=== PATIENT | female | born 1985 | race Caucasian/White ===

== ENCOUNTER 2018-07-23 11:51 | Outpatient (CLI) | payer MEDICAID ==
[2018-07-23 12:15] LABS: ADD MAN DIFF? NO
[2018-07-23 12:18] LABS: BASOPHIL # 0.1 10^3/ul (0.0-0.1); BASOPHILS % 0.8 % (0.0-2.0); EOSINOPHILS # 0.2 10^3/ul (0.0-0.5); EOSINOPHILS % 2.3 % (0.0-7.0); HEMATOCRIT 35.4 % (37.0-47.0); HEMOGLOBIN 11.3 g/dl (12.0-16.0); LYMPHOCYTES # 1.3 10^3/ul (0.8-2.9); LYMPHOCYTES % 17.2 % (15.0-51.0); MEAN CORPUSCULAR HEMOGLOBIN 24.7 pg (29.0-33.0); MEAN CORPUSCULAR HGB CONC 31.9 g/dl (32.0-37.0); MEAN CORPUSCULAR VOLUME 77.5 fl (82.0-101.0); MEAN PLATELET VOLUME 10.7 fl (7.4-10.4); MONOCYTE # 0.4 10^3/ul (0.3-0.9); MONOCYTES % 5.4 % (0.0-11.0); NEUTROPHIL # 5.4 10^3/ul (1.6-7.5); NEUTROPHILS % 73.8 % (39.0-77.0); PLATELET COUNT 351 10^3/UL (140-415); RED BLOOD COUNT 4.57 10^6/ul (4.20-5.40); RED CELL DISTRIBUTION WIDTH 14.9 % (11.5-14.5)
[2018-07-23 12:18] LABS: WHITE BLOOD COUNT 7.3 10^3/ul (4.8-10.8)
[2018-07-23 12:35] LABS: ALANINE AMINOTRANSFERASE 18 IU/L (13-69); ALBUMIN 3.6 g/dl (3.3-4.9); ALBUMIN/GLOBULIN RATIO 0.94; ALKALINE PHOSPHATASE 323 IU/L (42-121); ANION GAP 9 (5-13); ASPARTATE AMINO TRANSFERASE 27 IU/L (15-46); BILIRUBIN,INDIRECT 0.3 mg/dl (0-1.1); BILIRUBIN,TOTAL 0.3 mg/dl (0.2-1.3); BLOOD UREA NITROGEN 6 mg/dl (7-20); CALCIUM 8.9 mg/dl (8.4-10.2); CARBON DIOXIDE 19 mmol/L (21-31); CHLORIDE 110 mmol/L (97-110); CREATININE 0.63 mg/dl (0.44-1.00); Estimated GFR > 60 mL/min (>60); GLUCOSE 77 mg/dl (70-220); POTASSIUM 4.5 mmol/L (3.5-5.1); SODIUM 138 mmol/L (135-144); TOTAL PROTEIN 7.4 g/dl (6.1-8.1); URIC ACID 5.5 mg/dl (3.1-7.9)
[2018-07-23 12:41] LABS: INR 0.83; PROTIME 11.5 Sec (11.9-14.9); PT RATIO 0.9
[2018-07-23 12:42] LABS: PARTIAL THROMBOPLASTIN TIME 27.3 Sec (23.0-35.0)
[2018-07-23 12:52] LABS: ADD UMIC YES; UR AMORPHOUS CRYSTAL FEW /HPF (NONE SEEN); UR ASCORBIC ACID NEGATIVE (NEGATIVE); UR BACTERIA FEW /HPF (NONE SEEN); UR BILIRUBIN (Dip) NEGATIVE (NEGATIVE); UR BLOOD (Dip) 1+ mg/dL (NEGATIVE); UR CLARITY CLOUDY (CLEAR); UR COLOR YELLOW (YELLOW); UR GLUCOSE (Dip) NEGATIVE (NEGATIVE); UR KETONES (Dip) NEGATIVE (NEGATIVE); UR LEUKOCYTE ESTERASE (Dip) 3+ Leu/ul (NEGATIVE); UR NITRITE (Dip) NEGATIVE (NEGATIVE); UR RBC 12 /HPF (0-5); UR SPECIFIC GRAVITY (Dip) 1.008 (1.003-1.030); UR SQUAMOUS EPITHELIAL CELL FEW /HPF (FEW); UR TOTAL PROTEIN (Dip) NEGATIVE (NEGATIVE); UR UROBILINOGEN (Dip) NEGATIVE (NEGATIVE); UR WBC 37 /HPF (0-5)
[2018-07-23] MEDS: CEFTRIAXONE 2 GM INJ IM (16:08)
== END 2018-07-23 16:25 | disposition home or self-care (01) ==
LOC: OBT 11:51 → L-D 11:51 → OBT 16:25
DX: O13.3 Gestational [pregnancy-induced] hypertension without significant proteinuria, third trimester (principal); Z3A.38 38 weeks gestation of pregnancy
CPT/HCPCS: 76818; 80053; 81001; 84560; 85025; 85384; 85610; 85730; 96372

== ENCOUNTER 2018-07-27 11:23 | Inpatient (IN) | payer MEDICAID ==
[2018-07-27] MEDS ORDERED: OXYTOCIN 30 UNITS/LR 500 ML IV ×2 (12:30)
[2018-07-27] MEDS ORDERED: CARBOPROST 250 MCG INJ IM (12:30)
[2018-07-27] MEDS: LACTATED RINGER'S 1,000 ML IV ×2 (12:33→20:43)
[2018-07-27 12:53] LABS: ADD MAN DIFF? NO
[2018-07-27 12:56] LABS: BASOPHIL # 0.1 10^3/ul (0.0-0.1); BASOPHILS % 0.7 % (0.0-2.0); EOSINOPHILS % 0.4 % (0.0-7.0); HEMATOCRIT 35.2 % (37.0-47.0); LYMPHOCYTES # 1.2 10^3/ul (0.8-2.9); LYMPHOCYTES % 14.5 % (15.0-51.0); MEAN CORPUSCULAR HEMOGLOBIN 24.6 pg (29.0-33.0); MEAN CORPUSCULAR HGB CONC 31.3 g/dl (32.0-37.0); MEAN CORPUSCULAR VOLUME 78.6 fl (82.0-101.0); MONOCYTE # 0.3 10^3/ul (0.3-0.9); MONOCYTES % 3.8 % (0.0-11.0); NEUTROPHIL # 6.6 10^3/ul (1.6-7.5); NEUTROPHILS % 79.8 % (39.0-77.0); PLATELET COUNT 340 10^3/UL (140-415); RED BLOOD COUNT 4.48 10^6/ul (4.20-5.40); RED CELL DISTRIBUTION WIDTH 15.3 % (11.5-14.5)
[2018-07-27 12:56] LABS: WHITE BLOOD COUNT 8.3 10^3/ul (4.8-10.8)
[2018-07-27 13:16] LABS: PARTIAL THROMBOPLASTIN TIME 26.4 Sec (23.0-35.0)
[2018-07-27 13:22] LABS: PROTIME 12.3 Sec (11.9-14.9)
[2018-07-27 15:03] LABS: RAPID PLASMA REAGIN NONREACTIVE (NR)
[2018-07-27] MEDS: OXYTOCIN 30 UNITS/LR 500 ML IV (18:20)
[2018-07-28] MEDS: LACTATED RINGER'S 1,000 ML IV ×3 (00:29→09:42)
[2018-07-28] MEDS ORDERED: FENTAnyl 2MCG/ML-ROPIV 0.2% 100 ML (00:59)
[2018-07-28] MEDS ORDERED: ROPIVACAINE 0.2% 100 ML (01:00)
[2018-07-28] MEDS ORDERED: ONDANSETRON 4 MG INJ IV ×2 (01:00→22:00)
[2018-07-28] MEDS ORDERED: KETOROLAC 30 MG INJ IV (01:00)
[2018-07-28] MEDS ORDERED: NALOXONE (0.4 MG/ML) INJ IV (01:00)
[2018-07-28] MEDS ORDERED: DIPHENHYDRAMINE 50 MG INJ IV (01:00)
[2018-07-28] MEDS ORDERED: HYDROmorphONE 0.5 MG/0.5 ML SYG IV ×2 (01:00)
[2018-07-28] MEDS: FENTAnyl 2MCG/ML-ROPIV 0.2% 100 ML BAG EPI ×2 (11:10→20:03)
[2018-07-28] MEDS ORDERED: SODIUM CHLORIDE 0.9% 1L IRRIG IRR (12:30)
[2018-07-28] MEDS: DEXTROSE 5%-LR 1,000 ML IV (12:52)
[2018-07-28] MEDS: SOD CHLORIDE 0.9% 1,000 ML IV (15:42)
[2018-07-28] MEDS ORDERED: AMPICILLIN 2 GM/NS (PMX) 100 ML (20:16)
[2018-07-28] MEDS: AMPICILLIN 2 GM/NS (PMX) 100 ML IVPB (20:19)
[2018-07-28] MEDS: ACETAMINOPHEN 325 MG TAB PO (20:42)
[2018-07-28] MEDS: METHYLERGONOVINE 0.2 MG INJ IM (21:19)
[2018-07-28] MEDS: MISOPROSTOL 200 MCG TAB PR (21:23)
[2018-07-28] MEDS: OXYTOCIN 30 UNITS/LR 500 ML IV ×2 (21:56→22:14)
[2018-07-28] MEDS ORDERED: SENNA/DOCUSATE NA (8.6MG/50MG) TAB PO (22:00)
[2018-07-28] MEDS ORDERED: NACL 0.9% 3 ML SYG IV (22:00)
[2018-07-28] MEDS ORDERED: OXYTOCIN 30 UNITS/LR 500 ML IV (22:00)
[2018-07-28] MEDS ORDERED: OXYCODONE/ASPIRIN (4.88/325) TAB PO ×2 (22:00)
[2018-07-28] MEDS ORDERED: ACETAMINOPHEN 325 MG TAB PO (22:00)
[2018-07-28] MEDS ORDERED: METHYLERGONOVINE 0.2 MG INJ IM (22:00)
[2018-07-28] MEDS ORDERED: DIBUCAINE 1% 30 GM OINT TOP (22:00)
[2018-07-28] MEDS ORDERED: CARBOPROST 250 MCG INJ IM (22:00)
[2018-07-28] MEDS ORDERED: WITCH HAZEL/GLYCERIN PAD PR (22:00)
[2018-07-28] MEDS ORDERED: MISOPROSTOL 200 MCG TAB PR (22:00)
[2018-07-28] MEDS: LIDOCAINE 1% (MPF) 30 ML INJ INJ (22:09)
[2018-07-29] MEDS: ACETAMINOPHEN 325 MG TAB PO (00:21)
[2018-07-29] MEDS: LANOLIN HPA 1 PKT TOP (02:14)
[2018-07-29] MEDS: BENZOCAINE 20% 56 ML SPRAY TOP (02:14)
[2018-07-29] MEDS: IBUPROFEN 600 MG TAB PO ×5 (02:15→23:37)
[2018-07-29] MEDS ORDERED: MISOPROSTOL 200 MCG TAB PR (02:30)
[2018-07-29] MEDS ORDERED: LIDOCAINE 1% (MPF) 30 ML INJ INJ (02:30)
[2018-07-29] MEDS ORDERED: OXYTOCIN 30 UNITS/LR 500 ML IV ×3 (02:30)
[2018-07-29] MEDS ORDERED: CARBOPROST 250 MCG INJ IM (02:30)
[2018-07-29] MEDS ORDERED: METHYLERGONOVINE 0.2 MG INJ IM (02:30)
[2018-07-29 08:30] LABS: HEMATOCRIT 28.6 % (37.0-47.0); HEMOGLOBIN 9.2 g/dl (12.0-16.0)
[2018-07-29] MEDS: SENNA/DOCUSATE NA (8.6MG/50MG) TAB PO ×2 (12:05→21:13)
[2018-07-29] MEDS: LACTATED RINGER'S 1,000 ML IV ×6 (20:25→20:56)
[2018-07-30] MEDS: LACTATED RINGER'S 1,000 ML IV ×2 (02:25→03:06)
[2018-07-30] MEDS: IBUPROFEN 600 MG TAB PO ×2 (05:45→12:27)
[2018-07-30] MEDS: SENNA/DOCUSATE NA (8.6MG/50MG) TAB PO (09:37)
== END 2018-07-30 13:30 | disposition home or self-care (01) | DRG 807 ==
LOC: OBT 11:23 → PP1 07-29 01:46 → L-D 11:25 → OBT 11:51 → L-D 11:51
PROVIDERS: Obstetrics & Gynecology
PROC: 10E0XZZ Delivery of Products of Conception, External Approach (ICD-10-PCS; principal; 2018-07-28)
PROC: 0HQ9XZZ Repair Perineum Skin, External Approach (ICD-10-PCS; 2018-07-28)
DX: O69.81X0 Labor and delivery complicated by cord around neck, without compression, not applicable or unspecified (principal); Z37.0 Single live birth; O70.0 First degree perineal laceration during delivery; Z3A.38 38 weeks gestation of pregnancy
CPT/HCPCS: 85014; 85018; 85025; 85610; 85730; 86592; 86850; 86900; 86901; 99464